=== PATIENT | female | born 1975 | race Caucasian/White ===

== ENCOUNTER → 2016-11-10 | Outpatient (CLI) | payer BC ==
[~2016-11-10] MED LIST: BROMFED DM COU118 ML PO; FLONASE 50 MCG16 GM; MEDROL 4MG. DOSE4 MG PO; SERTRALINE 50MG50 MG PO; ZITHROMAX Z PA250 MG PO
--- NOTE | 2016-11-10 23:17 | RADIOLOGY REPORT PS360 ---
US PELVIS-TRANSVAGINAL ONLY HISTORY: DUBheavy periods. Dysfunctional uterine bleeding Patient Age: 41 years: Female Ordering Physician: Real Gonzalez MD TECHNIQUE: Transvaginal pelvic ultrasound. COMPARISON :None FINDINGS : Uterus appears normal in size. Upper normal in size It measures 9.2 cm length x 3.6 cm x 4.5 cm .. Moderate-Generous endometrial measures 9 mm AP Small 4 mm nabothian cyst seen at the cervix.. No discrete fibroids identified . There is no fluid in the cul-de-sac Ovaries within normal limits. The right ovary measures 2.2 cm x 1.3 x 1.3 cm. The left ovary measures 2.7 x 1.8 x 1.6 cm. IMPRESSION: Uterus of normal in size. 9 mm endometrial stripe Ovaries appear normal bilaterally. No fluid in cul-de-sac
== END ==
LOC: RAD 14:09
DX: N92.0 Excessive and frequent menstruation with regular cycle (principal)

== ENCOUNTER → 2016-12-22 | Outpatient (CLI) | payer BC ==
[2016-12-22 11:31] LABS: LYMPH # 2.9 K/mm3 (0.7-4.5); LYMPH % 38.9 % (10-50.0)
[2016-12-22 11:41] LABS: HEMOGLOBIN 14.5 g/dL (12.2-16.2)
[2016-12-22 12:22] LABS: BUN 13 mg/dL (7-18)
[2016-12-22 12:24] LABS: GFR (ESTIMATED) 68 ML/MIN (59-)
== END ==
LOC: LAB 10:46
PROVIDERS: Nurse Practitioner Obstetrics & Gynecology
DX: N92.0 Excessive and frequent menstruation with regular cycle (principal); Z01.810 Encounter for preprocedural cardiovascular examination; Z01.811 Encounter for preprocedural respiratory examination; Z01.812 Encounter for preprocedural laboratory examination